=== PATIENT | male | born 1965 | race Caucasian/White ===

== ENCOUNTER 2019-11-09 18:26 | Emergency (ER) | payer BC ==
[2019-11-09 19:51] VITALS: BP 138/91; PULSE 98; O2SAT 98
--- NOTE | 2019-11-09 19:55 | ERPHSYRPT ---
- History of Present Illness Source: patient Exam Limitations: no limitations Patient Subjective Stated Complaint: pt states that he has had diarrhea for 9 days, was diagnosed today with cdiff after dropping off sample yesterday. pt states he has some abdominal pain and some perianal pain from diarrhea. Triage Nursing Assessment: pt states pain is 1/10. states that the hospital called him today confirming that his tests came back positive for cdiff. Physician History: The patient is a 54-year-old male who presents with the chief complaint diarrhea and being told to come to the emergency department for further evaluation since he tested positive for C. difficile. He reportedly finished a course of antibiotics roughly a month ago consisting of amoxicillin and rifampin for a staph infection in one of his toes. Started 9 days ago, he reportedly had multiple episodes of diffuse watery diarrhea that has been persistent since that time. Indoors having some mild abdominal cramping and was seen by a provider last Saturday and had some labs obtained to include CBC, BMP in addition to stool cultures and C. difficile toxin obtained. All of his labs are relatively reassuring with the exception of him being positive for C. difficile. The patient denies fever, nausea, vomiting and reportedly has been able to eat and drink without difficulty. Allergies/Adverse Reactions: metformin Allergy (Verified 11/09/19 19:53) Home Medications: Gabapentin 400 mg [Neurontin 400 MG] 400 mg PO TID 06/24/16 [History] Mupirocin [Bactroban OINTMENT] 15 gm TP BID 06/24/16 [History] Hx Tetanus, Diphtheria Vaccination/Date Given: Yes Hx Influenza Vaccination/Date Given: No Hx Pneumococcal Vaccination/Date Given: No - Review of Systems Constitutional: No Fever, No Chills, No Night Sweats, No Weakness Respiratory: No Cough, No Cyanosis Abdominal/Gastrointestinal: Abdominal Pain, Diarrhea, No Nausea, No Vomiting, No Constipation, No Hematemesis, No Hematochezia, No Appetite Changes Genitourinary Symptoms: No Dysuria, No Frequency, No Hematuria, No Incontinence All Other Systems: Reviewed and Negative - Past Medical History Pertinent Past Medical History: Yes Neurological History: TIA Endocrine Medical History: Diabetes Type II Other Medical History: cdiff diagnosed today - Past Surgical History Past Surgical History: Yes Musculoskeletal: Orthopedic Surgery Other Surgical History: T AND A - RIGHT ANKLE, tonsillectomy, osteomyelitis in l great toe - Social History Smoking Status: Current every day smoker How long have you smoked: ~20 years Exposure to second hand smoke: No Drug Use: none Patient Lives Alone: No - Nursing Vital Signs Nursing Vital Signs: Initial Vital Signs Temperature 98.5 F 11/09/19 19:38 Pulse Rate 98 H 11/09/19 19:38 Respiratory Rate 18 11/09/19 19:38 Blood Pressure 138/91 11/09/19 19:38 O2 Sat by Pulse Oximetry 98 11/09/19 19:38 Pain Scale Pain Intensity 1 - Physical Exam General Appearance: no apparent distress, alert Eye Exam: PERRL/EOMI, No photophobia Ears, Nose, Throat Exam: normal ENT inspection Neck Exam: normal inspection, No non-tender, No supple Respiratory Exam: normal breath sounds, lungs clear, respiratory distress, No chest tenderness Cardiovascular Exam: regular rate/rhythm, normal heart sounds, normal peripheral pulses, No murmur, No friction rub, No gallop, No tachycardia Gastrointestinal/Abdomen Exam: soft, distention, No tenderness, No mass, No guarding, No ecchymosis, No pulsatile mass, No rebound, No hernia Back Exam: normal inspection Extremity Exam: normal inspection Neurologic Exam: alert, oriented x 3, cooperative Skin Exam: normal color, warm, dry, No rash, No petechiae, No jaundice SpO2 Interpretation: normal SpO2: 98 O2 Delivery: Room Air - Course Nursing assessment & vital signs reviewed: Yes - Progress Progress: unchanged Counseled pt/family regarding: lab results, diagnosis, need for follow-up - Departure Departure Disposition: Home Clinical Impression: C. difficile diarrhea Condition: Stable Critical Care Time: No Referrals: KRISTINE BRITTON [Primary Care Provider] - Instructions: Acute Abdomen (Belly Pain) Additional Instructions: Please take your medication as prescribed for a total of 10 days. Please call your primary care provider tomorrow morning and schedule followup appointment to be seen for reevaluation. Please refrain from taking any antidiarrheals such as loperamide has this didn't make his symptoms worse. Plan of Treatment: Nontoxic in appearance. The patient's exam was relatively benign, specifically his abdominal exam. Afebrile and the patient appears to be well-hydrated. Labs that were obtained from yesterday were reviewed in his EMR and were relatively benign with the exception of his testing + for c-diff. Given he is symptomatic and fits the typical risk factor (recent abx therapy) oral vancomycin was prescribed for mild c-diff diarrhea/colitis. He was instructed to not take any antidiarrheals (they reportedly do not help according to the patient) to avoid worsening his symptoms. Otherwise, he was instructed to f/u with her PCP. Return precautions given. He agreed with and verbally understood the discharge plan. Prescriptions: Vancomycin HCl [Vancomycin 25Mg/ml Oral Solution Compound Kit] 5 ml PO QID 10 Days #220 bottle
== END 2019-11-09 21:17 | disposition home or self-care (01) ==
LOC: ED 18:26
DX: A04.72 Enterocolitis due to Clostridium difficile, not specified as recurrent (principal)
CPT/HCPCS: 99283

== ENCOUNTER 2020-04-28 21:11 | Emergency (ER) | payer BC ==
[2020-04-28 21:24] VITALS: O2SAT 97
[2020-04-28 22:18] VITALS: BP 150/98; PULSE 88
--- NOTE | 2020-04-28 22:21 | ERPHSYRPT ---
- History of Present Illness Time Seen by Provider: 04/28/20 21:16 Patient Subjective Stated Complaint: . Triage Nursing Assessment: . Physician History: Patient is a 55-year-old male presents to our ED for evaluation of a contusion/abrasion to his left cheek. Patient is here to see whether or not this injury requires suture repair. Patient was sleeping in his bed last night. Patient states he rolled off his bed and hit his cheek on the floor. No LOC. No nausea or vomiting. No neck pain. Cervical spine cleared clinically. Patient is otherwise well. He denies pain. Patient does not want pain medication at this time. Patient voices no other complaints at this time. Occurred: this morning Reason for Fall: fell from height (Patient rolled off of his bed onto the floor.) Injuries/Pain Location: face Loss of Consciousness: no loss of consciousness Quality: other (Patient is pain-free. No headache or neck pain.) Severity of Pain-Max: none Severity of Pain-Current: none Modifying Factors: Improves With: nothing Associated Symptoms (Fall): denies symptoms Allergies/Adverse Reactions: metformin Allergy (Intermediate, Verified 04/28/20 21:24) Home Medications: Gabapentin 400 mg [Neurontin 400 MG] 400 mg PO TID 06/24/16 [History] Pravastatin Sodium 20 mg PO DAILY 04/28/20 [History] lisinopriL [Zestril] 10 mg PO DAILY 04/28/20 [History] Hx Tetanus, Diphtheria Vaccination/Date Given: Yes Hx Influenza Vaccination/Date Given: No Hx Pneumococcal Vaccination/Date Given: No Travel Risk - International Travel Have you traveled outside of the country in past 3 weeks: No - Coronavirus Screening Are you exhibiting any of the following symptoms?: No Close contact with a COVID-19 positive Pt in past 14-21 Days: No - Review of Systems Constitutional: No Symptoms, No Fever, No Chills Eyes: No Symptoms Ears, Nose, & Throat: No Symptoms Respiratory: No Symptoms, No Cough, No Dyspnea Cardiac: No Symptoms, No Chest Pain, No Edema, No Syncope Abdominal/Gastrointestinal: No Symptoms, No Abdominal Pain, No Nausea, No Vomiting, No Diarrhea Genitourinary Symptoms: No Symptoms, No Dysuria Musculoskeletal: No Symptoms, No Back Pain, No Neck Pain Skin: No Symptoms, No Rash Neurological: No Symptoms, No Dizziness, No Focal Weakness, No Sensory Changes Psychological: No Symptoms Endocrine: No Symptoms Hematologic/Lymphatic: No Symptoms Immunological/Allergic: No Symptoms All Other Systems: Reviewed and Negative - Past Medical History Pertinent Past Medical History: Yes Neurological History: TIA Endocrine Medical History: Diabetes Type II Other Medical History: cdiff diagnosed today - Past Surgical History Past Surgical History: Yes Musculoskeletal: Orthopedic Surgery Other Surgical History: T AND A - RIGHT ANKLE, tonsillectomy, osteomyelitis in l great toe - Social History Smoking Status: Current every day smoker How long have you smoked: 20 years Exposure to second hand smoke: No Drug Use: none Patient Lives Alone: No - Nursing Vital Signs Nursing Vital Signs: Initial Vital Signs Temperature 97.7 F 04/28/20 21:16 Pulse Rate 69 04/28/20 21:16 Respiratory Rate 18 04/28/20 21:16 Blood Pressure 166/99 04/28/20 21:16 O2 Sat by Pulse Oximetry 97 04/28/20 21:16 Pain Scale Pain Intensity 2 - [place]ys[place] Coma Score Best Eye Response ([place]ane): (4) open spontaneously Best Verbal Response ([place]): (5) oriented Best Motor Response ([place]): (6) obeys commands [place] Total: 15 - Physical Exam General Appearance: no apparent distress, alert Head Injury: no evidence of injury Eye Exam: PERRL/EOMI ENT Exam: airway nml Neck Exam: supple, trachea midline, full range of motion, normal alignment, normal inspection, No tenderness Respiratory/Chest Exam: normal breath sounds, No chest tenderness, No respiratory distress, No decreased breath sounds Cardiovascular Exam: normal heart sounds, regular rate/rhythm Gastrointestinal Exam: soft, No tenderness, No distention, No guarding, No ecchymosis Back Exam: normal inspection, No vertebral tenderness Extremity Exam: normal inspection, normal range of motion, pelvis stable, No deformities Peripheral Pulses: dorsalis-pedis (R): 2+, dorsalis-pedis (L): 2+ Neurologic Exam: alert, oriented x 3, cooperative, sensation nml, No motor deficits Skin Exam: normal color, warm, dry, other (Abrasion to left cheekbone. No indication for sutures) SpO2 Interpretation: normal SpO2: 97 O2 Delivery: Room Air - Course Nursing assessment & vital signs reviewed: Yes - Progress Progress: improved Progress Note: 04/28/20 22:19 In light of patient's history of diabetes, and C. difficile we advised basic labs to assess for possible dehydration may be contributing to patient's fall out of bed. Patient declined. Patient stated he was only here for his injury to his left cheek. He feels well otherwise. No headache. No neck pain. No nausea or vomiting. Patient otherwise asymptomatic. There is no indication for suture repair. The injury is superficial. Local wound care only. Patient declined further work-up. We will discharge patient home. Patient agrees to follow-up with his primary care doctor within 48 hours for reevaluation. Counseled pt/family regarding: diagnosis, need for follow-up - Departure Departure Disposition: Home Clinical Impression: Facial contusion, Skin abrasion, Head injury Condition: Stable Critical Care Time: No Referrals: KRISTINE BRITTON [Primary Care Provider] - Additional Instructions: Discharge/Care Plan ROSALINDA VALLECILLO was seen on 04/28/20 in the Emergency Room. The patient was counseled regarding Diagnosis,Lab results, Imaging studies, need for follow up and when to return to the Emergency Room. Prescriptions given: Discharge Note I have spoken with the patient and/or caregivers. I have explained the patient's condition, diagnosis and treatment plan based on the information available to me at this time. I have answered the patient's and/or caregiver's questions and addressed any concerns. The patient and/or caregivers have as good understanding of the patient's diagnosis, condition and treatment plan as can be expected at this point. The vital signs have been stable. The patient's condition is stable and appropriate for discharge from the emergency department. The patient will pursue further outpatient evaluation with the primary care physician or other designated or consulting physician as outlined in the discharge instructions. The patient and/or caregivers are agreeable to this plan of care and follow-up instructions have been explained in detail. The patient and/or caregivers have received these instruction. The patient/and or caregivers are aware that any significant change in condition or worsening of symptoms should prompt an immediate return to this or the closest emergency department or call 911.
== END 2020-04-28 22:30 | disposition home or self-care (01) ==
LOC: ED 21:11
DX: S00.83XA Contusion of other part of head, initial encounter (principal); S00.81XA Abrasion of other part of head, initial encounter; W06.XXXA Fall from bed, initial encounter; Y93.89 Activity, other specified; Y92.89 Other specified places as the place of occurrence of the external cause; E11.9 Type 2 diabetes mellitus without complications; S09.90XA Unspecified injury of head, initial encounter
CPT/HCPCS: 99283

== ENCOUNTER 2021-06-17 21:00 | Emergency (ER) | payer BC ==
[2021-06-17] MEDS ORDERED: Sodium Chloride 0.9% 1000 ML 1,000 ML IV SCH (21:45)
[2021-06-17] MEDS ORDERED: ROCEPHIN 2 Gm-D5w 50ML BAG** 2 G/50 ML IVPB IV STA (21:45)
[2021-06-17] MEDS ORDERED: lamISIL 250 MG PO ONE (21:46)
[2021-06-17] MEDS ORDERED: Sodium Chloride 0.9% 1000 ML 1,000 ML ONE (21:53)
[2021-06-17] MEDS ORDERED: ROCEPHIN 2 Gm-D5w 50ML BAG** 2 G/50 ML IVPB IV ONE (21:54)
[2021-06-17 22:26] LABS: Absolute Neutrophil Ct (ANC) 6.46 (1.4-6.9); BASOPHIL % 0.7 % (0.0-0.4); Basophil (Absolute #) 0.07 (0-0.4); Eosinophil % 5.3 % (0.00-5.0); Eosinophil (Absolute #) 0.56 (0-0.5); Hemoglobin 12.5 gm/dl (12.5-18.0); Lymphocyte (Absolute #) 2.29 (1.0-4.6); Lymphocytes % 21.9 % (24.0-44.0); Mean Cell Volume 85.2 fl (78-100); Mean Corpuscular Hgb Concent. 32.9 g/dl (32-36); Mean Platelet Volume 9.7 fl (7.5-11.0); Monocyte (Absolute #) 1.09 (0.0-1.3); Monocytes % 10.4 % (0.0-12.0); Neutrophil % 61.7 % (36.0-66.0); Platelet Count 325 K/mm3 (150-450); Red Blood Count 4.46 M/mm3 (4.1-5.6); Red Cell Distribution Width 13.7 % (11.5-14.0); White Blood Count 10.5 K/mm3 (4.0-10.5)
[2021-06-17 22:30] VITALS: O2SAT 98
[2021-06-17 22:49] LABS: ALBUMIN 4.2 g/dL (3.5-5.0); ALKALINE PHOSPHATASE 84 U/L (38-126); ANION GAP 14.2 MEQ/L (5-15); BLOOD UREA NITROGEN 14 mg/dL (9-20); CHLORIDE 102 mmol/L (98-107); Calcium 9.4 mg/dL (8.4-10.2); Carbon Dioxide 27 mmol/L (22-30); Creatinine 1 1.07 mg/dL (0.66-1.25); EST GLOMERULAR FILTRATION RATE > 60.0 ML/MIN; Glucose 203 mg/dL (74-106); SGOT/AST 25 U/L (17-59); SGPT/ALT 20 U/L (0-50); SODIUM 139 mmol/L (137-145); Total Protein 7.4 g/dL (6.3-8.2)
--- NOTE | 2021-06-17 23:09 | ERPHSYRPT ---
- History of Present Illness Time Seen by Provider: 06/17/21 21:50 Source: patient Patient Subjective Stated Complaint: pt states "I have increased swelling in my leg and sores on my feet." Triage Nursing Assessment: pt ambulated into the er; pt is axo x4; c/o LLE swelling; pt states open area to left foot; pt has 2+ edema to left lower extremity; redness present to LLE; no warmth present to LLE; pt has good cap refill to LLE; strong pedal pulse to LLE; bottom of left foot has open area, foot is moist, ordor present; hypertensive Physician History: Patient is a 56-year-old white male who presents with left leg pain and foot pain. He has developed an infection recently after walking with his toes which were wet and rock became raw. He is diabetic he has had cellulitis of the feet before. He sees Dr. Garcia usually in the [facility]. Method of Injury: unknown Occurred: yesterday Quality: burning, throbbing Severity of Pain-Max: mild Severity of Pain-Current: mild Lower Extremities Pain: 1st toe: right, 2nd toe: right, 3rd toe: right, 4th toe: right, 5th toe: right Modifying Factors: Improves With: nothing Associated Symptoms: none Allergies/Adverse Reactions: metformin Allergy (Intermediate, Verified 06/17/21 21:37) Home Medications: Gabapentin 400 mg [Neurontin 400 MG] 400 mg PO TID 06/24/16 [History] Pravastatin Sodium 20 mg PO DAILY 04/28/20 [History] lisinopriL [Zestril] 10 mg PO DAILY 04/28/20 [History] Hx Tetanus, Diphtheria Vaccination/Date Given: Yes Hx Influenza Vaccination/Date Given: No Hx Pneumococcal Vaccination/Date Given: No Travel Risk - International Travel Have you traveled outside of the country in past 3 weeks: No - Coronavirus Screening Are you exhibiting any of the following symptoms?: No Close contact with a COVID-19 positive Pt in past 14-21 Days: No - Vaccine Status Have you recieved a Covid-19 vaccination: Yes Rn Delivery: [employer] - Vaccination Dates Date of 2cond Vaccination (if applicable): 03/10 - Review of Systems Constitutional: No Fever, No Chills Eyes: No Symptoms Ears, Nose, & Throat: No Symptoms Respiratory: No Cough, No Dyspnea Cardiac: No Chest Pain, No Edema, No Syncope Abdominal/Gastrointestinal: No Abdominal Pain, No Nausea, No Vomiting, No Diarrhea Genitourinary Symptoms: No Dysuria Musculoskeletal: No Back Pain, No Neck Pain Skin: No Rash Neurological: No Dizziness, No Focal Weakness, No Sensory Changes Psychological: No Symptoms Endocrine: No Symptoms All Other Systems: Reviewed and Negative - Past Medical History Pertinent Past Medical History: Yes Neurological History: TIA Cardiac History: Hypertension Endocrine Medical History: Diabetes Type II Other Medical History: cdiff diagnosed today - Past Surgical History Past Surgical History: Yes Musculoskeletal: Orthopedic Surgery Other Surgical History: T AND A - RIGHT ANKLE, tonsillectomy, osteomyelitis in l great toe; left arm fracture - Social History Smoking Status: Current every day smoker How long have you smoked: 20 years Exposure to second hand smoke: Yes Drug Use: none Patient Lives Alone: No - Nursing Vital Signs Nursing Vital Signs: Initial Vital Signs Temperature 97.9 F 06/17/21 21:38 Pulse Rate 83 06/17/21 21:38 Respiratory Rate 18 06/17/21 21:38 Blood Pressure 176/100 06/17/21 21:38 O2 Sat by Pulse Oximetry 100 06/17/21 21:38 Pain Scale Pain Intensity 0 - Physical Exam General Appearance: mild distress, alert Eyes, Ears, Nose, Throat Exam: moist mucous membranes Neck Exam: non-tender, supple Cardiovascular/Respiratory Exam: chest non-tender, normal breath sounds, regular rate/rhythm, no respiratory distress Gastrointestinal/Abdominal Exam: non-tender, guarding Back Exam: normal inspection, No vertebral tenderness Foot Exam: right foot: pain, soft tissue tenderness, swelling, other (There are ulcers which could be tinea related underneath most of the toes of the left foot there is swelling redness and heat in the left foot and ankle.) Neuro/Tendon Exam: normal sensation, normal motor functions Mental Status Exam: alert, oriented x 3, cooperative Skin Exam: normal color, warm, dry SpO2 Interpretation: normal SpO2: 98 O2 Delivery: Room Air - Course Nursing assessment & vital signs reviewed: Yes Ordered Tests: Active Orders 24 hr Category Date Time Status IV Insertion STAT Care 06/17/21 21:43 Active BLOOD CULTURE Stat Lab 06/17/21 21:55 Received CBC W DIFF Stat Lab 06/17/21 21:50 Completed CMP Stat Lab 06/17/21 21:50 Completed CULTURE,WOUND Stat Lab 06/17/21 22:00 Received Lactic Acid Stat Lab 06/17/21 21:53 Completed PROCALCITONIN Stat Lab 06/17/21 21:55 Received Medication Summary Generic Name Dose Route Start Last Admin Trade Name Dada PRN Reason Stop Dose Admin Sodium Chloride 1,000 mls @ 100 mls/hr 06/17/21 21:45 06/17/21 21:57 Sodium Chloride 0.9% 1000 Ml IV 07/17/21 21:44 100 mls/hr .Q10H NBA Administration Discontinued Medications Generic Name Dose Route Start Last Admin Trade Name Dada PRN Reason Stop Dose Admin Ceftriaxone Sodium/Dextrose 2 g in 50 mls @ 100 mls/hr 06/17/21 21:45 05/22 06/10 22:29 Rocephin 2 Gm-D5w 50ml Bag IV 06/17/21 22:14 Infused STAT STA Infusion Ceftriaxone Sodium/Dextrose Confirm 06/17/21 21:54 Rocephin 2 Gm-D5w 50ml Bag Administered 06/17/21 21:55 Dose 2 g in 50 mls @ ud IV .STK-MED ONE Terbinafine HCl 250 mg 06/17/21 21:46 06/17/21 22:07 Lamisil 250 Mg PO 06/17/21 21:47 250 mg ONCE ONE Administration Lab/Rad Data: Laboratory Result Diagrams 06/17/21 21:50 06/17/21 21:50 Laboratory Results 06/17/21 06/17/21 06/17/21 Range/Units 21:53 21:50 21:50 WBC 10.5 (4.0-10.5) K/mm3 RBC 4.46 (4.1-5.6) M/mm3 Hgb 12.5 (12.5-18.0) gm/dl Hct 38.0 L (42-50) % MCV 85.2 (78-100) fl MCH 28.0 (26-32) pg MCHC 32.9 (32-36) g/dl RDW 13.7 (11.5-14.0) % Plt Count 325 (150-450) K/mm3 MPV 9.7 (7.5-11.0) fl Gran % 61.7 (36.0-66.0) % Eos # (Auto) 0.56 H (0-0.5) Absolute Lymphs (auto) 2.29 (1.0-4.6) Absolute Monos (auto) 1.09 (0.0-1.3) Lymphocytes % 21.9 L (24.0-44.0) % Monocytes % 10.4 (0.0-12.0) % Eosinophils % 5.3 H (0.00-5.0) % Basophils % 0.7 (0.0-0.4) % Absolute Granulocytes 6.46 (1.4-6.9) Basophils # 0.07 (0-0.4) Sodium 139 (137-145) mmol/L Potassium 4.0 (3.5-5.1) mmol/L Chloride 102 (98-107) mmol/L Carbon Dioxide 27 (22-30) mmol/L Anion Gap 14.2 (5-15) MEQ/L BUN 14 (9-20) mg/dL Creatinine 1.07 (0.66-1.25) mg/dL Estimated GFR > 60.0 ML/MIN Glucose 203 H (74-106) mg/dL Lactic Acid 0.9 (0.4-2.0) Calcium 9.4 (8.4-10.2) mg/dL Total Bilirubin 0.40 (0.2-1.3) mg/dL AST 25 (17-59) U/L ALT 20 (0-50) U/L Alkaline Phosphatase 84 (38-126) U/L Serum Total Protein 7.4 (6.3-8.2) g/dL Albumin 4.2 (3.5-5.0) g/dL - Progress Progress: unchanged - Departure Departure Disposition: Home Clinical Impression: Wound, open, foot, Cellulitis Condition: Stable Critical Care Time: No Referrals: KRISTINE BRITTON [Primary Care Provider] - Instructions: Cellulitis (Skin Infection), Adult (DC) Prescriptions: Cefdinir 300 mg PO BID 7 Days #20 cap Terbinafine HCl [Lamisil] 125 ml TP BID #1 kit Terbinafine HCl [Lamisil] 250 mg PO DAILY 15 Days #15 tablet
[2021-06-17 23:36] VITALS: BP 156/98; PULSE 89
== END 2021-06-17 23:48 | disposition home or self-care (01) ==
LOC: ED 21:00
DX: L03.116 Cellulitis of left lower limb (principal); M79.672 Pain in left foot; M79.89 Other specified soft tissue disorders
CPT/HCPCS: 36000; 36415; 80053; 83605; 84145; 85025; 87040; 87070; 96360; 99284; J0696; A9270-GY

== ENCOUNTER 2024-01-18 18:58 | Emergency (ER) | payer BC ==
--- NOTE | 2024-01-18 20:23 | ERPHSYRPT ---
- History of Present Illness Time Seen by Provider: 01/18/24 20:07 Historian: patient Exam Limitations: no limitations Patient Subjective Stated Complaint: pt states he has had watery stools for the last 3 days and thinks he is dehydrated. Triage Nursing Assessment: pt alert and oriented, answers questions approp, pt ambulates into room with steady gait noted. respirations nonlabored. abd soft and pt states nontender to light palpation. Physician History: For the past 3 days pt has had vomiting & diarrhea without blood and squeezing between his shoulders; yesterday dull suprapubic pain 3/10 in severity; denies chest pain, shortness of air, fever, headache. Allergies/Adverse Reactions: metformin Allergy (Intermediate, Verified 01/18/24 19:51) Home Medications: Gabapentin [Neurontin ] 400 mg PO TID 06/24/16 [History] Pravastatin Sodium 20 mg PO DAILY 04/28/20 [History] lisinopriL [Zestril] 10 mg PO DAILY 04/28/20 [History] Hx Tetanus, Diphtheria Vaccination/Date Given: Yes Hx Influenza Vaccination/Date Given: No Hx Pneumococcal Vaccination/Date Given: No Immunizations Up to Date: Yes Travel Risk - International Travel Have you traveled outside of the country in past 3 weeks: No - Emerging Infectious Disease Are you exhibiting symptoms associated with any current EIDs: No - Review of Systems Constitutional: No Fever Respiratory: No Dyspnea Cardiac: No Chest Pain Abdominal/Gastrointestinal: Abdominal Pain, Vomiting, Diarrhea Neurological: No Headache - Past Medical History Pertinent Past Medical History: Yes Neurological History: TIA Cardiac History: Hypertension Endocrine Medical History: Diabetes Type II Other Medical History: hx of c diff - Past Surgical History Past Surgical History: Yes Musculoskeletal: Orthopedic Surgery Other Surgical History: T AND A - RIGHT ANKLE, tonsillectomy, osteomyelitis in l great toeand 4th digit, rt foot; left arm fracture - Social History Smoking Status: Current every day smoker How long have you smoked: 20 years Exposure to second hand smoke: Yes Drug Use: none Patient Lives Alone: No - Nursing Vital Signs Nursing Vital Signs: Initial Vital Signs Pulse Rate 84 01/18/24 19:24 Respiratory Rate 15 01/18/24 19:24 Blood Pressure 141/91 01/18/24 19:24 O2 Sat by Pulse Oximetry 98 01/18/24 19:24 Pain Scale Pain Intensity 0 - Physical Exam General Appearance: alert Eye Exam: eyes nml inspection Ears, Nose, Throat Exam: TMs normal, dry mucous membranes Neck Exam: normal inspection Respiratory Exam: lungs clear Cardiovascular Exam: normal heart sounds Gastrointestinal/Abdomen Exam: soft, No normal bowel sounds (B.S. mildly hyperactive and normotonic) Extremity Exam: No pedal edema Neurologic Exam: alert, cooperative SpO2 Interpretation: normal SpO2: 99 O2 Delivery: Room Air - Course Nursing assessment & vital signs reviewed: Yes EKG Interpreted by Me: RATE (81), Sinus Rhythm, Left [place] Deviation, Other (QTc = 427) - Radiology Exams Chest X-ray Interpretation: Interpreted by me, No Pneumonia - CT Exams Abdomen/Pelvis CT Interpretation: Tele-radiologist Report (No acute abnormalities identified.) Ordered Tests: Active Orders 24 hr Category Date Time Status EKG-ER Only STAT Care 01/18/24 20:23 Active IV Insertion STAT Care 01/18/24 20:23 Active ABDOMEN AND PELVIS W/0 CONTRAS [CT] Stat Exams 01/18/24 20:23 Completed CHEST 2 VIEWS (PA AND LAT) Stat Exams 01/18/24 20:23 Taken AMYLASE Stat Lab 01/18/24 20:41 Completed CBC W DIFF Stat Lab 01/18/24 20:41 Completed CMP Stat Lab 01/18/24 20:41 Completed LIPASE Stat Lab 01/18/24 20:41 Completed MAGNESIUM Stat Lab 01/18/24 20:41 Completed TROPONIN Q4H Lab 01/18/24 20:41 Completed TROPONIN Q4H Lab 01/19/24 00:30 Ordered TROPONIN Q4H Lab 01/19/24 04:30 Ordered UA W/RFX UR CULTURE Stat Lab 01/18/24 22:03 Completed Medication Summary Discontinued Medications Generic Name Dose Route Start Last Admin Trade Name Freq PRN Reason Stop Dose Admin Sodium Chloride 1,000 mls @ 999 mls/hr 01/18/24 20:23 01/18/24 21:21 Sodium Chloride 0.9% 1000 Ml IV 01/18/24 21:23 Infused .Q1H1M STA Infusion Sodium Chloride Confirm 01/18/24 20:28 Sodium Chloride 0.9% 1000 Ml Administered 01/18/24 20:29 Dose 1,000 mls @ ud .ROUTE .STK-MED ONE Sodium Chloride 1,000 mls @ 999 mls/hr 01/19/24 00:25 01/19/24 00:28 Sodium Chloride 0.9% 1000 Ml IV 01/19/24 01:25 999 mls/hr .Q1H1M STA Administration Sodium Chloride Confirm 01/19/24 00:27 Sodium Chloride 0.9% 1000 Ml Administered 01/19/24 00:28 Dose 1,000 mls @ ud .ROUTE .STK-MED ONE Lab/Rad Data: Laboratory Result Diagrams 01/18/24 20:41 01/18/24 20:41 Laboratory Results 01/18/24 01/18/24 01/18/24 Range/Units 22:03 20:41 20:41 WBC (4.0-10.5) x10^3/uL RBC (4.1-5.6) x10^6/uL Hgb (12.5-18.0) g/dL Hct (42-50) % MCV (78-100) fL MCH (26-32) pg MCHC (32-36) g/dL RDW (11.5-14.0) % Plt Count (150-450) x10^3/uL MPV (7.5-11.0) fL Gran % (36.0-66.0) % Immature Gran % (Auto) (0.00-0.4) % Nucleat RBC Rel Count (0.00-0.1) % Eos # (Auto) (0-0.5) x10^3/uL Immature Gran # (Auto) (0.00-0.03) x10^3u/L Absolute Lymphs (auto) (1.0-4.6) x10^3/uL Absolute Monos (auto) (0.0-1.3) x10^3/uL Absolute Nucleated RBC (0.00-0.01) x10^3u/L Lymphocytes % (24.0-44.0) % Monocytes % (0.0-12.0) % Eosinophils % (0.00-5.0) % Basophils % (0.0-0.4) % Absolute Granulocytes (1.4-6.9) x10^3/uL Basophils # (0-0.4) x10^3/uL Sodium 137 (135-145) mmol/L Potassium 4.2 (3.5-5.1) mmol/L Chloride 106 (98-107) mmol/L Carbon Dioxide 20 L (22-30) mmol/L Anion Gap 15.6 H (5-15) MEQ/L BUN 28 H (9-20) mg/dL Creatinine 1.76 H (0.66-1.25) mg/dL Estimated GFR 44.6 ML/MIN Glucose 130 H (74-106) mg/dL Calcium 9.1 (8.4-10.2) mg/dL Magnesium 1.8 (1.6-2.3) mg/dL Total Bilirubin 0.40 (0.2-1.3) mg/dL AST 23 (17-59) U/L ALT 19 (0-50) U/L Alkaline Phosphatase 56 (38-126) U/L Troponin I < 0.012 (0.000-0.034) ng/mL Serum Total Protein 7.0 (6.3-8.2) g/dL Albumin 3.8 (3.5-5.0) g/dL Amylase 51 (30-110) U/L Lipase 27 (23-300) U/L Urine Color Yellow (Yellow) Urine Appearance Clear (Clear) Urine pH 5.0 (4.6-8.0) Ur Specific [place] 1.010 (1.005-1.030) Urine Protein Trace A (Negative) Urine Glucose (UA) Negative (Negative) mg/dL Urine Ketones Negative (Negative) Urine Blood Negative (Negative) Urine Nitrite Negative (Negative) Urine Bilirubin Negative (Negative) Urine Urobilinogen 0.2 (0.2) mg/dL Ur Leukocyte Esterase Negative (Negative) U Hyaline Cast (Auto) 3-5 A (0-2) /LPF Urine Microscopic RBC 0-2 (0-5) /HPF Urine Microscopic WBC 0-2 (0-5) /HPF Ur Epithelial Cells None Seen (None Seen) /HPF Urine Bacteria None Seen (None Seen) /HPF Urine Culture Reflexed NO (NO) 01/18/24 Range/Units 20:41 WBC 12.6 H (4.0-10.5) x10^3/uL RBC 5.31 (4.1-5.6) x10^6/uL Hgb 15.4 (12.5-18.0) g/dL Hct 45.7 (42-50) % MCV 86.1 (78-100) fL MCH 29.0 (26-32) pg MCHC 33.7 (32-36) g/dL RDW 13.2 (11.5-14.0) % Plt Count 295 (150-450) x10^3/uL MPV 10.1 (7.5-11.0) fL Gran % 67.2 H (36.0-66.0) % Immature Gran % (Auto) 0.5 H (0.00-0.4) % Nucleat RBC Rel Count 0.0 (0.00-0.1) % Eos # (Auto) 0.59 H (0-0.5) x10^3/uL Immature Gran # (Auto) 0.06 H (0.00-0.03) x10^3u/L Absolute Lymphs (auto) 2.37 (1.0-4.6) x10^3/uL Absolute Monos (auto) 1.04 (0.0-1.3) x10^3/uL Absolute Nucleated RBC 0.00 (0.00-0.01) x10^3u/L Lymphocytes % 18.8 L (24.0-44.0) % Monocytes % 8.3 (0.0-12.0) % Eosinophils % 4.7 (0.00-5.0) % Basophils % 0.5 (0.0-0.4) % Absolute Granulocytes 8.48 H (1.4-6.9) x10^3/uL Basophils # 0.06 (0-0.4) x10^3/uL Sodium (135-145) mmol/L Potassium (3.5-5.1) mmol/L Chloride (98-107) mmol/L Carbon Dioxide (22-30) mmol/L Anion Gap (5-15) MEQ/L BUN (9-20) mg/dL Creatinine (0.66-1.25) mg/dL Estimated GFR ML/MIN Glucose (74-106) mg/dL Calcium (8.4-10.2) mg/dL Magnesium (1.6-2.3) mg/dL Total Bilirubin (0.2-1.3) mg/dL AST (17-59) U/L ALT (0-50) U/L Alkaline Phosphatase (38-126) U/L Troponin I (0.000-0.034) ng/mL Serum Total Protein (6.3-8.2) g/dL Albumin (3.5-5.0) g/dL Amylase (30-110) U/L Lipase (23-300) U/L Urine Color (Yellow) Urine Appearance (Clear) Urine pH (4.6-8.0) Ur Specific [place] (1.005-1.030) Urine Protein (Negative) Urine Glucose (UA) (Negative) mg/dL Urine Ketones (Negative) Urine Blood (Negative) Urine Nitrite (Negative) Urine Bilirubin (Negative) Urine Urobilinogen (0.2) mg/dL Ur Leukocyte Esterase (Negative) U Hyaline Cast (Auto) (0-2) /LPF Urine Microscopic RBC (0-5) /HPF Urine Microscopic WBC (0-5) /HPF Ur Epithelial Cells (None Seen) /HPF Urine Bacteria (None Seen) /HPF Urine Culture Reflexed (NO) - Progress Progress: unchanged Progress Note: 01/19/24 02:20 Pt refuses hospitalization. Counseled pt/family regarding: lab results, diagnosis, need for follow-up, rad results Medical Desision Making - Diagnostic Testing Diagnostic test were ordered, analyzed, and reviewed by me: Yes Radiological Interpretation: Interpreted by me, Teleradiologist Report - Departure Departure Disposition: Home Clinical Impression: Dehydration, mild, Vomiting, Diarrhea, Squeezing between his shoulders, Abdominal pain Condition: Stable Critical Care Time: No Referrals: EMMANUELLE WHITFIELD [Primary Care Provider] - Follow up/PCP as directed Instructions: Diarrhea and Traveler's Diarrhea, Adult (DC), Nausea and Vomiting, Adult (DC), Severe Abdominal Pain, Adult (DC), Dehydration, Adult (DC) Additional Instructions: Follow up with private doctor tomorrow. Drink more water. Forms: Work/School Release Form
[2024-01-18] MEDS ORDERED: Sodium Chloride 0.9% 1000 ML 1,000 ML ONE (20:28)
[2024-01-18] MEDS: Sodium Chloride 0.9% 1000 ML 1,000 ML IV STA (20:30)
[2024-01-18 20:49] LABS: Absolute Neutrophil Ct (ANC) 8.48 x10^3/uL (1.4-6.9); BASOPHIL % 0.5 % (0.0-0.4); Basophil (Absolute #) 0.06 x10^3/uL (0-0.4); Eosinophil % 4.7 % (0.00-5.0); Eosinophil (Absolute #) 0.59 x10^3/uL (0-0.5); Hematocrit 45.7 % (42-50); Hemoglobin 15.4 g/dL (12.5-18.0); IMMATURE GRAN # 0.06 x10^3u/L (0.00-0.03); IMMATURE GRAN % 0.5 % (0.00-0.4); Lymphocyte (Absolute #) 2.37 x10^3/uL (1.0-4.6); Lymphocytes % 18.8 % (24.0-44.0); Mean Cell Volume 86.1 fL (78-100); Mean Corpuscular Hgb Concent. 33.7 g/dL (32-36); Mean Platelet Volume 10.1 fL (7.5-11.0); Monocyte (Absolute #) 1.04 x10^3/uL (0.0-1.3); Monocytes % 8.3 % (0.0-12.0); Neutrophil % 67.2 % (36.0-66.0); Platelet Count 295 x10^3/uL (150-450); Red Blood Count 5.31 x10^6/uL (4.1-5.6); Red Cell Distribution Width 13.2 % (11.5-14.0); White Blood Count 12.6 x10^3/uL (4.0-10.5)
[2024-01-18 21:06] LABS: ALBUMIN 3.8 g/dL (3.5-5.0); ANION GAP 15.6 MEQ/L (5-15); BILIRUBIN,TOTAL 0.4 mg/dL (0.2-1.3); Calcium 9.1 mg/dL (8.4-10.2); Creatinine 1 1.76 mg/dL (0.66-1.25); EST GLOMERULAR FILTRATION RATE 44.6 ML/MIN; MAGNESIUM 1.8 mg/dL (1.6-2.3); Potassium 4.2 mmol/L (3.5-5.1)
--- NOTE | 2024-01-18 21:41 | XRAY ---
CLINICAL HISTORY: pain COMPARISON: None. TECHNIQUE: A CT scan of the abdomen and pelvis was performed without IV contrast. Coronal and sagittal reconstructive images were also obtained. FINDINGS: A scan through the lower chest reveals unremarkable lung bases and heart. Abdomen: The liver is normal in size. No focal or diffuse parenchymal abnormality. The portal vein, intrahepatic biliary radicals, and the bile ducts are normal. Pancreas reduced in size with signs of fatty infiltration. The spleen and adrenal glands are unremarkable. The kidneys are unremarkable. They are normal in size and shape. No hydronephrosis. Non-obstructive microlithiasis of 3 mm in the left lower calyx group. The gallbladder is normal. No pericholecystic collection or radio-dense calculi in the gall bladder. The ascending colon, the transverse colon, the descending colon, and the visualized small bowel loops are unremarkable. Isolated diverticular images in the colon, without signs of complication. Cecal appendix with normal caliber, without inflammatory changes. There is no evidence of significant enlargement of the mesenteric or retroperitoneal lymph nodes. Mild aortoiliac wall calcifications. Pelvis: The urinary bladder is unremarkable. The rectosigmoid colon is unremarkable. The prostate is unremarkable. Calcified vas deferens. The pelvic vasculature is unremarkable. No evidence of pelvic lymphadenopathy. The osseous structures in the pelvis, lower rib cage, and lumbar spine show no abnormality. No lytic or sclerotic bone lesions. Degenerative changes in the visualized spine, with marginal osteophytes. IMPRESSION: 1. No acute abnormalities identified. 2. Pancreas reduced in size with signs of fatty infiltration. 3. Non-obstructive microlithiasis of 3 mm in the left lower calyx group. 4. Isolated diverticular images in the colon, without signs of complication. Electronically Signed by: Marium Bennett MD. (01/18/2024 21:36:33 EDT)
[2024-01-18 22:11] LABS: Appearance Clear (Clear); Bacteria None Seen /HPF (None Seen); Bilirubin Negative (Negative); Blood Negative (Negative); Epithelial Cells None Seen /HPF (None Seen); Glucose, Urine Negative (Negative); Ketones Negative (Negative); Leukocyte Esterase Negative (Negative); Nitrite Negative (Negative); Protein,Urine Dip Trace (Negative); RBC 0-2 /HPF (0-5); Urobilinogen 0.2 mg/dL (0.2); WBC 0-2 /HPF (0-5)
[2024-01-18 22:12] LABS: ADD URINE CULTURE? NO (NO)
[2024-01-19] MEDS ORDERED: Sodium Chloride 0.9% 1000 ML 1,000 ML ONE (00:27)
[2024-01-19] MEDS: Sodium Chloride 0.9% 1000 ML 1,000 ML IV STA (00:28)
[2024-01-19 01:20] VITALS: O2SAT 99
[2024-01-19 02:35] VITALS: BP 112/64; PULSE 76; RESP 18
--- NOTE | 2024-01-19 08:01 | XRAY ---
Indication: "Squeezing sensation in shoulders." Comparison: June 23, 2016 PA/lateral chest demonstrates normal heart and lungs. Bony thorax intact. No new/acute findings.
== END 2024-01-19 02:37 | disposition home or self-care (01) ==
LOC: ED 18:58
DX: E86.0 Dehydration (principal); R11.2 Nausea with vomiting, unspecified; R19.7 Diarrhea, unspecified; M54.6 Pain in thoracic spine; R10.2 Pelvic and perineal pain; I10 Essential (primary) hypertension; E11.9 Type 2 diabetes mellitus without complications; Z79.899 Other long term (current) drug therapy; Z72.0 Tobacco use
CPT/HCPCS: 36000; 36415; 71046; 74176; 80053; 81001; 82150; 83690; 83735; 84484; 85025; 93005; 99284

== ENCOUNTER 2024-11-26 00:44 | Emergency (ER) | payer BC ==
[2024-11-26] MEDS ORDERED: XYLOCAINE 1% HCL 20 ML MDV IJ ONE (00:45)
[2024-11-26 01:03] VITALS: TEMP 99.1; O2SAT 99
--- NOTE | 2024-11-26 01:14 | ERPHSYRPT ---
- History of Present Illness Time Seen by Provider: 11/26/24 01:10 Source: patient Exam Limitations: no limitations Patient Subjective Stated Complaint: c/o swollen right middle finger Triage Nursing Assessment: patient brought self into ED with c/o swollen right middle finger. patient states that he burned his finger 3 weeks ago. patient went to [facility] yesterday and was prescribed bactrim and cephalexin. patient rates pain 7/10 and states the swelling is a lot worse. patient has a 2cm x 1.5cm burn on his right third finger. hypertensive, skin w/n/d, afebrile, gait steady, patient doesn't appear to be in any distress at this time. Physician History: Patient is a 59-year-old male history of diabetes presents for emergency department for evaluation of pain to his right middle finger. Patient reports he burned his finger 3 weeks ago on a cigarette. The finger became acutely painful today. Patient went to an urgent care. Patient was started on doxycycline and Keflex. Patient is here because his pain has gotten significantly worse over the past several hours. Patient now feels the pain radiating into the palm of his hand. No interval injuries. No inoculation injuries. No fever. No nausea vomiting or diaphoresis. The finger is painful to movement. Symptoms are mild to moderate in intensity. Immobilizing the finger improves his pain. The area of the original burn measures 2 cm x 1.5 cm. Patient reports his tetanus is up-to-date. Patient voices no other complaints or concerns at this time. Portions of this note were created with voice recognition technology. There may be grammatical, spelling, punctuation or sound alike errors Timing/Duration: today Severity: moderate Modifying Factors: Improves With: nothing Associated Symptoms: denies symptoms Allergies/Adverse Reactions: metformin Allergy (Intermediate, Verified 11/26/24 01:04) Home Medications: Gabapentin [Neurontin ] 400 mg PO TID 06/24/16 [History] Doxycycline Hyclate 100 mg PO DAILY 11/26/24 [History] Testosterone Enanthate [Xyosted] 75 mg SQ WEEKLY 11/26/24 [History] Tirzepatide [Mounjaro] 10 mg SQ WEEKLY 11/26/24 [History] cephALEXin [Cephalexin] 500 mg PO DAILY 11/26/24 [History] Hx Tetanus, Diphtheria Vaccination/Date Given: Yes Hx Influenza Vaccination/Date Given: No Hx Pneumococcal Vaccination/Date Given: No Travel Risk - International Travel Have you traveled outside of the country in past 3 weeks: No - Emerging Infectious Disease Are you exhibiting symptoms associated with any current EIDs: No - Review of Systems Constitutional: No Symptoms, No Fever, No Chills Eyes: No Symptoms Ears, Nose, & Throat: No Symptoms Respiratory: No Symptoms, No Cough, No Dyspnea Cardiac: No Symptoms, No Chest Pain, No Edema, No Syncope Abdominal/Gastrointestinal: No Symptoms, No Abdominal Pain, No Nausea, No Vomiting, No Diarrhea Genitourinary Symptoms: No Symptoms, No Dysuria Musculoskeletal: No Symptoms, No Back Pain, No Neck Pain Skin: No Symptoms, No Rash Neurological: No Symptoms, No Dizziness, No Focal Weakness, No Sensory Changes Psychological: No Symptoms Endocrine: No Symptoms Hematologic/Lymphatic: No Symptoms Immunological/Allergic: No Symptoms All Other Systems: Reviewed and Negative - Past Medical History Pertinent Past Medical History: Yes Neurological History: Peripheral Neuropathy, TIA Cardiac History: Hypertension Endocrine Medical History: Diabetes Type II Other Medical History: hx of c diff - Past Surgical History Past Surgical History: Yes Musculoskeletal: Orthopedic Surgery Other Surgical History: T AND A - RIGHT ANKLE, tonsillectomy, osteomyelitis in l great toeand 4th digit, rt foot; left arm fracture, colonoscopy - Social History Smoking Status: Current every day smoker How long have you smoked: 20 years Exposure to second hand smoke: Yes Drug Use: none Patient Lives Alone: No - Social Determinants of Health Will the patient participate in the screening: Yes Do you worry about a steady place to live?: No Do you have any problems with any of the following?: No known problems In the past 12 months,have you had to go without utilities?: No Transportation Issues: No Has anyone in your support network made you feel unsafe?: No Have you or anyone in your house had to go without enough: No - Nursing Vital Signs Nursing Vital Signs: Initial Vital Signs Temperature 99.1 F 11/26/24 00:51 Pulse Rate 91 H 11/26/24 00:51 Respiratory Rate 18 11/26/24 00:51 Blood Pressure 172/98 11/26/24 00:51 O2 Sat by Pulse Oximetry 99 11/26/24 00:51 Pain Scale Pain Intensity 7 - Physical Exam General Appearance: no apparent distress, alert Eye Exam: PERRL/EOMI, eyes nml inspection Ears, Nose, Throat Exam: normal ENT inspection, moist mucous membranes Neck Exam: normal inspection, full range of motion Respiratory Exam: normal breath sounds, airway intact, No respiratory distress Cardiovascular Exam: regular rate/rhythm, normal peripheral pulses Gastrointestinal/Abdomen Exam: soft, normal bowel sounds, No tenderness, No mass Back Exam: normal inspection, normal range of motion, No CVA tenderness, No vertebral tenderness Extremity Exam: normal inspection, normal range of motion, pelvis stable Neurologic Exam: alert, oriented x 3, cooperative, normal mood/affect, sensation nml, No motor deficits Skin Exam: normal color, warm, dry, No rash Lymphatic Exam: No adenopathy SpO2 Interpretation: normal SpO2: 99 O2 Delivery: Room Air - Course Nursing assessment & vital signs reviewed: Yes Ordered Tests: Active Orders 24 hr Category Date Time Status IV Insertion STAT Care 11/26/24 01:57 Active Pulse Oximetry (ED) STAT Care 11/26/24 01:57 Active Medication Summary Generic Name Dose Route Start Last Admin Trade Name [place] PRN Reason Stop Dose Admin Vancomycin HCl 1 gm in 200 mls @ 125 mls/hr 11/26/24 01:58 Vancomycin 1 Gram/200 Ml Bag IV 11/26/24 03:33 STAT ONE Discontinued Medications Generic Name Dose Route Start Last Admin Trade Name Freq PRN Reason Stop Dose Admin Ceftriaxone Sodium 1,000 mg 11/26/24 01:28 11/26/24 01:34 Ceftriaxone Sodium 1000 Mg Inj Vial IM 11/26/24 01:29 1,000 mg STAT ONE Administration Ceftriaxone Sodium Confirm 11/26/24 01:30 Ceftriaxone Sodium 1000 Mg Inj Vial Administered 11/26/24 01:31 Dose 1,000 mg .ROUTE .STK-MED ONE Ketorolac Tromethamine 30 mg 11/26/24 01:28 11/26/24 01:34 Ketorolac Tromethamine 30 Mg/Ml Inj IV 11/26/24 01:29 30 mg STAT ONE Administration Ketorolac Tromethamine Confirm 11/26/24 01:30 Ketorolac Tromethamine 30 Mg/Ml Inj Administered 11/26/24 01:31 Dose 30 mg .ROUTE .STK-MED ONE Lidocaine HCl Confirm 11/26/24 01:30 Lidocaine Hcl 1% 20 Ml Mdv 20 Ml Ml Administered 11/26/24 01:31 Dose 1 ml .ROUTE .STK-MED ONE - Progress Progress: improved Progress Note: Patient requesting pain control. Patient received Toradol. Pain significantly improved. I communicated with Dr. Olivo of orthopedic surgery. He advised hospitalization with vancomycin and Zosyn. Patient to be kept NPO. Plan of care discussed with patient. Patient states he cannot stay in our ED any longer. He had to leave. Patient refused an IV including antibiotic. Patient received IM Rocephin and Toradol for pain control. A referral to orthopedic clinic was provided. Patient agrees to follow-up in the orthopedic clinic tomorrow morning. Dr. Olivo updated on patient's decision to leave AMA. Patient will continue his outpatient antibiotics as prescribed. Portions of this note were created with voice recognition technology. There may be grammatical, spelling, punctuation or sound alike errors Complexity of problem addressed is moderate acute complicated no critical care time. Complex of data reviewed and analyzed is none. No specialized testing ordered. Diagnosis made based on history and physical exam. Risk of complication and or risk of morbidity/mortality of patient management is low. Vital stable. Time spent to discharge patient AMA is approximately 10 minutes. No social determinants of health present to impede follow-up. Portions of this note were created with voice recognition technology. There may be grammatical, spelling, punctuation or sound alike errors 11/26/24 02:41 Counseled pt/family regarding: diagnosis, need for follow-up - Departure Departure Disposition: AMA Clinical Impression: Finger infection Condition: Stable Critical Care Time: No Referrals: GENEVA TURNER MD [Primary Care Provider] - Follow up/PCP as directed
[2024-11-26] MEDS ORDERED: TORAdol 30 mg Injection ONE (01:30)
[2024-11-26] MEDS ORDERED: Rocephin 1000 MG INJ ONE (01:30)
[2024-11-26] MEDS ORDERED: XYLOCAINE 1% HCL 20 ML MDV ONE (01:30)
[2024-11-26] MEDS: Rocephin 1000 MG INJ IM ONE (01:34)
[2024-11-26] MEDS: TORAdol 30 mg Injection IV ONE (01:34)
[2024-11-26] MEDS ORDERED: VANCOMYCIN 1 GRAM/200 ML BAG 1 GM/200 ML PIGGYBACK IV ONE (01:58)
[2024-11-26 02:40] VITALS: BP 152/82; PULSE 95; RESP 20
== END 2024-11-26 02:48 | disposition left against medical advice (07) ==
LOC: ED 00:44
DX: L08.9 Local infection of the skin and subcutaneous tissue, unspecified (principal); M79.644 Pain in right finger(s); I10 Essential (primary) hypertension; E11.42 Type 2 diabetes mellitus with diabetic polyneuropathy; Z79.85 Long-term (current) use of injectable non-insulin antidiabetic drugs; Z79.899 Other long term (current) drug therapy; Z72.0 Tobacco use
CPT/HCPCS: 96372; 96374; 96375; 99283; 99284; J0696; J1885

== ENCOUNTER 2025-05-17 15:55 | Emergency (ER) | payer BC ==
[2025-05-17 16:18] VITALS: TEMP 97.9
--- NOTE | 2025-05-17 16:58 | ERPHSYRPT ---
- History of Present Illness Time Seen by Provider: 05/17/25 16:15 Source: patient Exam Limitations: no limitations Patient Subjective Stated Complaint: pt got his ears cleaned out a few weeks ago and they ruptured his ear drum, pt was then admitted over night at [facility] for IV antibiotics, pt continues to have ear pain and dizziness, pt had been on 500 mg Augmentin for 4-5 days and then they switched him to 875mg for 4-5 days and then switched him to Doxycycline 100mg and has been on for 5 days Triage Nursing Assessment: Pt brought self to the ER, hypertensive, rates pain as 1-/ at this time, pulses normal, skin n/w/d, unable to walk a straight line due to the dizziness, denies any other issues Physician History: 60-year-old male presents to our ED for evaluation of dizziness that has been ongoing for approximately 2-1/2 weeks. Patient attributes his dizziness to a ruptured eardrum on the right. Ruptured eardrum was diagnosed at [facility] approximately 2-1/2 weeks ago at the time his dizziness started. Patient also complains of diminished hearing in the right ear. Patient's dizziness is constant. Patient states "I walk like I am drunk". Patient has been through several rounds of antibiotics and states that nothing is helping his dizziness. He has not seen or spoken to a neurologist. Patient symptoms are constant. Symptoms are moderate in intensity. No specific worsening or improving factors. No trauma. No fever. Patient otherwise feels well. He voices no other complaints or concerns at this time. Portions of this note were created with voice recognition technology. There may be grammatical, spelling, punctuation or sound alike errors Timing/Duration: today Severity: moderate Modifying Factors: Improves With: nothing Associated Symptoms: denies symptoms Allergies/Adverse Reactions: metformin Allergy (Intermediate, Verified 05/17/25 16:18) Home Medications: Gabapentin [Neurontin ] 400 mg PO TID 06/24/16 [History] Doxycycline Hyclate 100 mg PO DAILY 11/26/24 [History] Tirzepatide [Mounjaro] 10 mg SQ WEEKLY 11/26/24 [History] Hx Tetanus, Diphtheria Vaccination/Date Given: Yes Hx Influenza Vaccination/Date Given: No Hx Pneumococcal Vaccination/Date Given: No Travel Risk - International Travel Have you traveled outside of the country in past 3 weeks: No - Emerging Infectious Disease Are you exhibiting symptoms associated with any current EIDs: No - Review of Systems Constitutional: No Symptoms, No Fever, No Chills Eyes: No Symptoms Ears, Nose, & Throat: No Symptoms Respiratory: No Symptoms, No Cough, No Dyspnea Cardiac: No Symptoms, No Chest Pain, No Edema, No Syncope Abdominal/Gastrointestinal: No Symptoms, No Abdominal Pain, No Nausea, No Vomiting, No Diarrhea Genitourinary Symptoms: No Symptoms, No Dysuria Musculoskeletal: No Symptoms, No Back Pain, No Neck Pain Skin: No Symptoms, No Rash Neurological: No Symptoms, No Dizziness, No Focal Weakness, No Sensory Changes Psychological: No Symptoms Endocrine: No Symptoms Hematologic/Lymphatic: No Symptoms Immunological/Allergic: No Symptoms All Other Systems: Reviewed and Negative - Past Medical History Pertinent Past Medical History: Yes Neurological History: Peripheral Neuropathy, TIA Cardiac History: Hypertension Endocrine Medical History: Diabetes Type II Other Medical History: hx of c diff - Past Surgical History Past Surgical History: Yes Musculoskeletal: Orthopedic Surgery Other Surgical History: T AND A - RIGHT ANKLE, tonsillectomy, osteomyelitis in l great toeand 4th digit, rt foot; left arm fracture, colonoscopy - Social History Smoking Status: Current every day smoker How long have you smoked: 20 years Exposure to second hand smoke: Yes Drug Use: none - Social Determinants of Health Will the patient participate in the screening: Yes Do you worry about a steady place to live?: No Do you have any problems with any of the following?: No known problems In the past 12 months,have you had to go without utilities?: No Transportation Issues: No Has anyone in your support network made you feel unsafe?: No Have you or anyone in your house had to go w/o enough food: No - Nursing Vital Signs Nursing Vital Signs: Initial Vital Signs Temperature 97.9 F 05/17/25 16:09 Pulse Rate 80 05/17/25 16:09 Blood Pressure 142/86 05/17/25 16:09 O2 Sat by Pulse Oximetry 97 05/17/25 16:09 Pain Scale Pain Intensity 1 - Physical Exam General Appearance: no apparent distress, alert Eye Exam: PERRL/EOMI, eyes nml inspection Ears, Nose, Throat Exam: normal ENT inspection, pharynx normal, moist mucous membranes, other (Diminished hearing right ear. There is residual cotton in his right ear canal. Patient states he normally cleans his ear with a Q-tip) Neck Exam: normal inspection, non-tender, supple, full range of motion Respiratory Exam: normal breath sounds, lungs clear, No respiratory distress Cardiovascular Exam: regular rate/rhythm, normal heart sounds, normal peripheral pulses Gastrointestinal/Abdomen Exam: soft, normal bowel sounds, No tenderness, No mass Back Exam: normal inspection, normal range of motion, No CVA tenderness, No vertebral tenderness Extremity Exam: normal inspection, normal range of motion, pelvis stable Neurologic Exam: alert, oriented x 3, cooperative, normal mood/affect, sensation nml, No motor deficits Skin Exam: normal color, warm, dry, No rash Lymphatic Exam: No adenopathy SpO2 Interpretation: normal SpO2: 97 O2 Delivery: Room Air - Course Nursing assessment & vital signs reviewed: Yes EKG Interpreted by Me: RATE (96), Sinus Rhythm, NORMAL AXIS, NORMAL INTERVALS, NORMAL QRS - CT Exams Head CT Interpretation: Tele-radiologist Report (Cerebral atrophy, old left basal ganglia infarct measuring 2.1 x 1.4 x 2.5 cm) Ordered Tests: Active Orders 24 hr Category Date Time Status AMA [Release AMA] OM.NOW Care 05/17/25 19:04 Ordered [employer] C[employer] Apprentice STAT Care 05/17/25 16:44 Active EKG-ER Only STAT Care 05/17/25 16:44 Active IV Insertion STAT Care 05/17/25 16:44 Active Pulse Oximetry (ED) STAT Care 05/17/25 16:44 Active HEAD WITHOUT CONTRAST [CT] Stat Exams 05/17/25 16:44 Taken CBC W DIFF Stat Lab 05/17/25 17:00 Completed CMP Stat Lab 05/17/25 17:00 Completed TROPONIN Q4H Lab 05/17/25 17:00 Completed TROPONIN Q4H Lab 05/17/25 20:45 Ordered TROPONIN Q4H Lab 05/18/25 00:45 Ordered Medication Summary Generic Name Dose Route Start Last Admin Trade Name Freq PRN Reason Stop Dose Admin Sodium Chloride 1,000 mls @ 100 mls/hr 05/17/25 16:45 05/17/25 16:53 Sodium Chloride 0.9% 1000 Ml IV 06/16/25 16:44 Not Given .Q10H [facility] Lab/Rad Data: Laboratory Result Diagrams 05/17/25 17:00 05/17/25 17:00 Laboratory Results 05/17/25 05/17/25 05/17/25 Range/Units 17:00 17:00 17:00 WBC 14.4 H (4.23-9.07) x10^3/uL RBC 4.89 (4.63-6.08) x10^6/uL Hgb 14.2 (13.7-17.5) g/dL Hct 40.4 (40.1-51.0) % MCV 82.6 (79.0-92.2) fL MCH 29.0 (25.7-32.2) pg MCHC 35.1 (32.3-36.5) g/dL RDW 14.5 H (11.6-14.4) % Plt Count 220 (163-337) x10^3/uL MPV 9.5 (9.4-12.4) fL Gran % 58.3 (34.0-67.9) % Immature Gran % (Auto) 0.5 H (0.001-0.429) % Nucleat RBC Rel Count 0.0 (0.00-0.2) % Eos # (Auto) 2.01 H (0.04-0.54) x10^3/uL Immature Gran # (Auto) 0.07 H (0.001-0.031) x10^3u/L Absolute Lymphs (auto) 2.68 (1.32-3.57) x10^3/uL Absolute Monos (auto) 1.08 H (0.30-0.82) x10^3/uL Absolute Nucleated RBC 0.00 (0.00-0.012) x10^3u/L Lymphocytes % 18.6 L (21.8-53.1) % Monocytes % 7.5 (5.3-12.2) % Eosinophils % 13.9 H (0.8-7.0) % Basophils % 1.2 (0.2-1.2) % Absolute Granulocytes 8.42 H (1.78-5.38) x10^3/uL Basophils # 0.17 H (0.01-0.08) x10^3/uL Sodium 137 (135-145) mmol/L Potassium 3.9 (3.5-5.1) mmol/L Chloride 102 (98-107) mmol/L Carbon Dioxide 27 (22-30) mmol/L Anion Gap 12.1 (5-15) MEQ/L BUN 17 (9-20) mg/dL Creatinine 1.51 H (0.66-1.25) mg/dL Estimated GFR 52.9 ML/MIN Glucose 115 H (74-106) mg/dL Calcium 9.3 (8.4-10.2) mg/dL Total Bilirubin 0.30 (0.2-1.3) mg/dL AST 27 (17-59) U/L ALT 24 (0-50) U/L Alkaline Phosphatase 63 (38-126) U/L Troponin I < 0.012 (0.000-0.033) ng/mL Serum Total Protein 6.5 (6.3-8.2) g/dL Albumin 3.7 (3.5-5.0) g/dL Slides for Path Review YES - Progress Progress: improved Progress Note: Patient presents to our ED for evaluation of dizziness and decreased hearing. No focal or lateralizing symptoms or findings on my exam. CT head reveals cerebral atrophy with an old left basal ganglier infarct. Laboratory work reveals a leukocytosis with chronic renal insufficiency. I discussed the case with teleneurologist at 7:08 PM. He advised admission for MRI. Patient states that he has to leave to work this evening. Patient decided to leave AGAINST MEDICAL ADVICE. However patient left before I Dr. Zhou could speak to him. But nurse informed me that patient is going to work and will not be staying in our ED. So patient left on his own free will. Complexity of problem addressed is moderate acute complicated. No critical care time. Complexity of data reviewed and analyzed as extensive. Test ordered test reviewed results analyzed and correlated clinically with history and physical exam. Management discussed with teleneurologist. Risk of complication and or risk of morbidity/mortality of patient management is low. Vital stable. Patient discharged AGAINST MEDICAL ADVICE. Patient left before Dr. Zhou could speak to him. No social determinants of health present to impede follow-up. Of note we irrigated patient's right ear. Portions of this note were created with voice recognition technology. There may be grammatical, spelling, punctuation or sound alike errors Of note we irrigated patient's right ear as we observed residual cotton likely from a Q-tip as patient cleans ears with Q-tips. We were able to remove most of the Q-tip cotton. However there is no significant change in his symptoms. The most of the cotton was removed with simple irrigation 05/17/25 19:13 Counseled pt/family regarding: lab results, diagnosis, need for follow-up, rad results - Departure Departure Disposition: AMA Clinical Impression: Dizziness, Hard of hearing, Chronic renal insufficiency, Leukocytosis Condition: Stable Critical Care Time: No Referrals: GENEVA TURNER MD [Primary Care Provider, [facility]] - Follow up/PCP as directed
[2025-05-17 17:11] LABS: BASOPHIL % 1.2 % (0.2-1.2); Basophil (Absolute #) 0.17 x10^3/uL (0.01-0.08); Eosinophil (Absolute #) 2.01 x10^3/uL (0.04-0.54); Hematocrit 40.4 % (40.1-51.0); Hemoglobin 14.2 g/dL (13.7-17.5); IMMATURE GRAN # 0.07 x10^3u/L (0.001-0.031); IMMATURE GRAN % 0.5 % (0.001-0.429); Lymphocyte (Absolute #) 2.68 x10^3/uL (1.32-3.57); Mean Corpuscular Hemoglobin 29.0 pg (25.7-32.2); Mean Corpuscular Hgb Concent. 35.1 g/dL (32.3-36.5); Monocyte (Absolute #) 1.08 x10^3/uL (0.30-0.82); NUCLEATED RBC # 0.00 x10^3u/L (0.00-0.012); NUCLEATED RBC % 0.0 % (0.00-0.2); Platelet Count 220 x10^3/uL (163-337); Red Blood Count 4.89 x10^6/uL (4.63-6.08); White Blood Count 14.4 x10^3/uL (4.23-9.07)
[2025-05-17 17:31] LABS: Calcium 9.3 mg/dL (8.4-10.2); Carbon Dioxide 27.0 mmol/L (22-30); Creatinine 1 1.51 mg/dL (0.66-1.25); EST GLOMERULAR FILTRATION RATE 52.9 ML/MIN; Glucose 115.0 mg/dL (74-106); Potassium 3.9 mmol/L (3.5-5.1); SGOT/AST 27.0 U/L (17-59); SGPT/ALT 24.0 U/L (0-50); Total Protein 6.5 g/dL (6.3-8.2)
[2025-05-17 17:45] LABS: Slide Review 1 YES
--- NOTE | 2025-05-17 18:46 | PCM.CONS ---
History of Present Illness - Neuro Consultation ED Arrival Date & Time: 05/17/25 15:55 Providers: Attending Provider: ED Provider: ENA PAYNE Consulting Provider: LUZ BYRNES MD cc:: The requesting physician will be sent a copy of the consult. - History of Present Illness HPI: The patient is a 60M wiht h/o DM retinopathy, TIA presents with dizziness fro 3 weeks. he had a ruptured eardrum about 3 weeks ago which was later irrigated . He states that since then he has had dizziness and disequilibrium, fatiqgue and decreased energy: no room spinning sensation. He is not blood thinners or a ntiplatelet. current smoker. RN at bedside. Review of Systems - Review of Systems Review of Systems (Narrative): Pertinent positive and negative findings as per HPI. All other systems negative. Constitutional: Denies fevers, chills, weight loss ENT: Denies tinnitus Ophthalmology: Denies diplopia, blurred vision, vision loss Respiratory: Denies SOB, cough Cardiovascular: Denies chest pains, palpitations GI: Denies nausea, vomiting : Denies hematuria Hematology: Denies excessive bleeding Musculoskeletal: Denies back pain, neck pain, Neurology: Denies headache, altered mentation, focal weakness, numbness, tingling Mental Health: Denies anxiety Dermatology: Denies rash - Past Medical History Past Medical History: Yes Neurological History: Peripheral Neuropathy, TIA Cardiac History: Hypertension Endocrine Medical History: Diabetes Type II Comment: hx of c diff - Past Surgical History Past Surgical History: Yes Musculskeletal Surgical Hx: Orthopedic Surgery Other Surgical History: T AND A - RIGHT ANKLE, tonsillectomy, osteomyelitis in l great toeand 4th digit, rt foot; left arm fracture, colonoscopy - Social History Smoking Status: Current every day smoker How long have you smoked: 20 years Exposure to second hand smoke: Yes Alcohol: None Drug Use: none - Social Determinants of Health Will the patient participate in the screening: Yes Do you worry about a steady place to live?: No Do you have any problems with any of the following?: No known problems In the past 12 months,have you had to go without utilities?: No Have you or anyone in your house had to go without enough: No Transportation Issues: No Has anyone in your support network made you feel unsafe?: No Physical Exam - Vital Signs Vital Signs: Vital Signs - 24 hr 05/17/25 05/17/25 05/17/25 16:09 16:30 16:58 Temperature 97.9 F Pulse Rate 80 Respiratory Rate Blood Pressure 142/86 142/95 Blood Pressure 142/86 [Right Arm] O2 Sat by Pulse 98 97 Oximetry 05/17/25 05/17/25 05/17/25 17:14 17:15 17:19 Temperature Pulse Rate Respiratory Rate Blood Pressure 161/99 Blood Pressure [Right Arm] O2 Sat by Pulse 98 96 96 Oximetry 05/17/25 05/17/25 17:30 18:00 Temperature Pulse Rate 91 H 94 H Respiratory 17 25 H Rate Blood Pressure 169/114 154/93 Blood Pressure [Right Arm] O2 Sat by Pulse 99 Oximetry - Physical Exam General: no acute distress, well developed, well nourished, alert Mental Status: alert, awake and oriented, fund of knowledge, memory at baseline, fluent speech, no dysarthria, cooperative Cranial nerves: Pupils are round and reactive,no anisocoria, extra ocular movements intact, sensation intact, face is symmetric, hearing intact Motor: antigravity in all 4 ext, no drift noted, normal bulk, no motor deficit Sens:: intact to touch in all 4 MSR:: unable to assess through telemedicine, no clonus noted. Gait: deferred - NIHSS Stroke Scale Date Completed: 05/17/25 Time Stroke Scale Completed: 18:37 Level of Consciousness: Alert Level of Questions: Answers both correctly LOC Commands: Obeys both correctly Best Gaze: Normal Visual: No visual loss Facial Palsy: Normal Motor Arm-Left: No Drift Motor Arm-Right: No Drift Motor Leg-Left: No Drift Motor Leg Right: No Drift Limb Ataxia: Absent Sensory: Normal Best Language: No apashia Dysarthria: Normal aticulation Extinction and Inattention: No Neglect Stroke Risk Level: 0 Results - Labs Lab/Micro Results: Lab Results-Last 24 Hours 05/17/25 05/17/25 05/17/25 Range/Units 17:00 17:00 17:00 WBC 14.4 H (4.23-9.07) x10^3/uL RBC 4.89 (4.63-6.08) x10^6/uL Hgb 14.2 (13.7-17.5) g/dL Hct 40.4 (40.1-51.0) % MCV 82.6 (79.0-92.2) fL MCH 29.0 (25.7-32.2) pg MCHC 35.1 (32.3-36.5) g/dL RDW 14.5 H (11.6-14.4) % Plt Count 220 (163-337) x10^3/uL MPV 9.5 (9.4-12.4) fL Gran % 58.3 (34.0-67.9) % Immature Gran % (Auto) 0.5 H (0.001-0.429) % Nucleat RBC Rel Count 0.0 (0.00-0.2) % Eos # (Auto) 2.01 H (0.04-0.54) x10^3/uL Immature Gran # (Auto) 0.07 H (0.001-0.031) x10^3u/L Absolute Lymphs (auto) 2.68 (1.32-3.57) x10^3/uL Absolute Monos (auto) 1.08 H (0.30-0.82) x10^3/uL Absolute Nucleated RBC 0.00 (0.00-0.012) x10^3u/L Lymphocytes % 18.6 L (21.8-53.1) % Monocytes % 7.5 (5.3-12.2) % Eosinophils % 13.9 H (0.8-7.0) % Basophils % 1.2 (0.2-1.2) % Absolute Granulocytes 8.42 H (1.78-5.38) x10^3/uL Basophils # 0.17 H (0.01-0.08) x10^3/uL Sodium 137 (135-145) mmol/L Potassium 3.9 (3.5-5.1) mmol/L Chloride 102 (98-107) mmol/L Carbon Dioxide 27 (22-30) mmol/L Anion Gap 12.1 (5-15) MEQ/L BUN 17 (9-20) mg/dL Creatinine 1.51 H (0.66-1.25) mg/dL Estimated GFR 52.9 ML/MIN Glucose 115 H (74-106) mg/dL Calcium 9.3 (8.4-10.2) mg/dL Total Bilirubin 0.30 (0.2-1.3) mg/dL AST 27 (17-59) U/L ALT 24 (0-50) U/L Alkaline Phosphatase 63 (38-126) U/L Troponin I < 0.012 (0.000-0.033) ng/mL Serum Total Protein 6.5 (6.3-8.2) g/dL Albumin 3.7 (3.5-5.0) g/dL Slides for Path Review YES - Radiology Orders Radiology Orders: Radiology Procedures Category Date Time Status HEAD WITHOUT CONTRAST [CT] Stat Exams 05/17/25 16:44 Taken Impressions & Recommendations - ED Arrival Time ED Arrival Date & Time: ED Arrival Date and Time 05/17/25 15:55 Last known well time: - Recommendations Recommendations: CVA vs peripheral vertigo LKW:3 weeks ago NIHSS:0 Is patient an IV thrombolytics candidate:No .out of window - Admit to stroke unit - Frequent neuro-checks (q4h) - BP goal <130/80 - Baseline EKG and CXR - Basic labs: CBC, CMP, coagulation panel and troponin - Intravenous hydration with normal saline at 75cc per hour - NPO until after [employer] eval -Replace electrolytes prn -Keep K >4.0, Mg > 2.0. - Head of bed > 30 degrees for aspiration prevention and aspiration precautions Stroke workup: -CTH: no acute lesion -stat CTA head and neck: If LVO or dissection, get stat Neuro IR consult -MRI brain w/o con: -Trans-thoracic echocardiogram with bubble study -Continuous cardiac telemetry to monitor for arrhythmia -Stroke labwork: HgbA1C, lipid panel, urine drug screen Secondary prevention of stroke: - -Aspirin 325mg and plavix 300mg load then asa 81mg and plavix 75mg daily for 3 weeks then asa 81mg daily -Atorvastatin 40 mg daily (long-term goal LDL < 70) -Tight glucose control (long-term goal HgbA1c < 7%) -Stroke education and counseling -If smoker, smoking counseling and offer assistance with smoking cessation (possible nicotine patch) Stroke rehabilitation: -Physical therapy, occupational therapy, speech therapy consults -Consult social work and case management for help with discharge Neurology and ENT follow up in 2 weeks Assessment & Plan - Encounter Encounter: "The entirety of this encounter was performed via Telemedicine using audio and visual " Medical Decision making Acute issues prompting hospitalization enumerated, reviewed and managed individually as above. Complexity of Chronic Problems enumerated, reviewed and managed individually as above. Independently interpreted labs and radiology. Risk of morbidity reviewed. Additional testing/treatment as discussed individually above. Discussed findings with patient/family, charge nurse/bedside nurse. Included in the discussion were the latest clinical, laboratory and imaging findings. We also discussed updated working diagnosis, overall impression and updated plan of care. In this discussion, current plan for treatment, medication indication discussed. Patient/family member agreeable to discussed plan of care. I answered all the questions to their satisfaction. Acute care plan was discussed with Dr Abelardo Busby Thank you for allowing us to participate in this patients care. Please call [facility] with questions, concerns, or change in patients neurological status. This consult was performed via secure telemedicine 2 way audio/visual platform, patient consent obtained. Acute Stroke consult time: 1737h [facility] Neuro arrival on screen time: 1738h [facility]
[2025-05-17 19:05] VITALS: BP 170/97; PULSE 89; RESP 13
[2025-05-17 19:10] VITALS: O2SAT 97
--- NOTE | 2025-05-18 08:34 | XRAY ---
Indication: Dizziness. Multiple contiguous axial images obtained through the head without contrast. Comparison: September 10, 2011 Progressive worsening age-appropriate global atrophy. New finding 2.1 x 1.4 x 2.5 cm focus old infarct left basal ganglia. No acute intracranial hemorrhage, abnormal extra-axial fluid collection, or mass effect. Fourth ventricle is midline without hydrocephalus. Chavis-white matter differentiation preserved. Bony calvarium intact. Visualized paranasal sinuses and mastoid air cells are clear. Impression: Atrophy within normal limits. Small remote infarct left basal ganglia. No acute intracranial abnormalities.
== END 2025-05-17 19:10 | disposition left against medical advice (07) ==
LOC: ED 15:55
DX: R42 Dizziness and giddiness (principal); H91.90 Unspecified hearing loss, unspecified ear; N18.9 Chronic kidney disease, unspecified; D72.829 Elevated white blood cell count, unspecified; E11.42 Type 2 diabetes mellitus with diabetic polyneuropathy; I10 Essential (primary) hypertension; Z79.85 Long-term (current) use of injectable non-insulin antidiabetic drugs; Z79.899 Other long term (current) drug therapy; Z72.0 Tobacco use
CPT/HCPCS: 36415; 70450; 80053; 84484; 85025; 93005; 93041; 94760; 99285; Q3014